=== PATIENT | female | born 1985 | race Caucasian/White ===

== ENCOUNTER 2016-10-28 22:54 | Inpatient (IN) ==
[2016-10-28] MEDS ORDERED: PEPCID PO PRN (23:11)
[2016-10-28] MEDS ORDERED: STADOL IV PRN (23:11)
[2016-10-28] MEDS ORDERED: ZOFRAN IV PRN (23:11)
[2016-10-28] MEDS ORDERED: KEFZOL 1 GM/D5W 1 GM/50 ML IVPB IV PRN (23:11)
[2016-10-28] MEDS ORDERED: PEPCID IV PRN (23:11)
[2016-10-28] MEDS ORDERED: LR 1,000 ML IV SCH (23:11)
[2016-10-28] MEDS ORDERED: TYLENOL PO PRN (23:11)
[2016-10-28] MEDS ORDERED: PITOCIN 30 UNITS/LR 30 UNITS/500 ML IV.SOLN IV SCH (23:11)
[2016-10-28] MEDS ORDERED: SODIUM CHLORIDE 0.9% INJ SCH (23:15)
[2016-10-28 23:36] LABS: MANUAL DIFF NEEDED? NO
[2016-10-28 23:40] LABS: BASO% 0.1 % (0.0-0.8); EOS# 0.11 X1000 (0.0-0.7); EOS% 1.1 % (0.0-10.0); HEMATOCRIT 34.1 % (37.0-47.0); HEMOGLOBIN 11.3 g/dL (12.0-16.0); IMM GRAN# 0.02 X1000 (0.0-0.04); IMM GRAN% 0.2 % (0.0-0.5); LYMPH# 1.73 X1000 (1.2-3.4); LYMPH% 17.4 % (20.5-51.1); MCH 28.3 PG (27-31); MCHC 33.1 g/dL (33-37); MCV 85.3 FL (81-99); MONO# 0.75 X1000 (0.11-0.59); MONO% 7.6 % (1.7-9.3); MPV 9.9 FL (7.4-10.4); NEUT% 73.6 % (42.2-75.2); PLT 265 X1000 (130-400)
[2016-10-28] MEDS ORDERED: NAROPIN 0.2% EPIDURAL SCH (23:45)
[2016-10-28] MEDS ORDERED: XYLOCAINE-MPF 1% INJ ONE (23:46)
[2016-10-28] MEDS ORDERED: MINERAL OIL MISC ONE (23:46)
[2016-10-29] MEDS ORDERED: BOOSTRIX VACCINE IM ONE (01:00)
[2016-10-29] MEDS ORDERED: HYDROXYZINE PO PRN (01:00)
[2016-10-29] MEDS ORDERED: HYDROXYZINE IM PRN (01:00)
[2016-10-29] MEDS ORDERED: CYTOTEC PO PRN (01:00)
[2016-10-29] MEDS ORDERED: PERCOCET-10 PO PRN (01:00)
[2016-10-29] MEDS ORDERED: PITOCIN 30 UNITS/LR 30 UNITS/500 ML IV.SOLN IV ONE (01:00)
[2016-10-29] MEDS ORDERED: PITOCIN IM PRN (01:00)
[2016-10-29] MEDS ORDERED: BENADRYL PO PRN (01:00)
[2016-10-29] MEDS ORDERED: PITOCIN 20 UNITS/LR 20 UNITS/1,000 ML IV.SOLN IV SCH (01:00)
[2016-10-29] MEDS ORDERED: AMBIEN PO PRN (01:00)
[2016-10-29] MEDS ORDERED: PERCOCET-5 PO PRN (01:00)
[2016-10-29] MEDS ORDERED: BENADRYL IV PRN (01:00)
[2016-10-29] MEDS ORDERED: XYLOCAINE-MPF 1% INJ PRN (01:00)
[2016-10-29] MEDS ORDERED: PERI MEDS (DERMOPLAST/NUPERCAINAL/TUCKS) MISC PRN (01:00)
[2016-10-29] MEDS ORDERED: M-M-R II VACCINE SUBQ ONE (01:00)
[2016-10-29] MEDS ORDERED: MINERAL OIL PO PRN (01:00)
[2016-10-29 04:02] LABS: URINE SOURCE VOIDED
[2016-10-29 04:12] LABS: UR AMPHETAMINES QUAL NONE DETECTED (NONE DETECT); UR BARBITUATES QUAL NONE DETECTED (NONE DETECT); UR BENZODIAZEPIN QUAL NONE DETECTED (NONE DETECT); UR CANNABINOIDS QUAL NONE DETECTED (NONE DETECT); UR COCAINE QUAL NONE DETECTED (NONE DETECT); UR MDMA QUAL NONE DETECTED (NONE DETECT); UR METHADONE QUAL NONE DETECTED (NONE DETECT); UR METHAMPHETAMINE QUAL NONE DETECTED (NONE DETECT); UR OPIATES QUAL NONE DETECTED (NONE DETECT); UR OXYCODONE QUAL NONE DETECTED (NONE DETECT); UR PCP QUAL NONE DETECTED (NONE DETECT); UR TCA QUAL NONE DETECTED (NONE DETECT)
[2016-10-29] MEDS: MOTRIN PO PRN ×2 (04:19→16:31)
[2016-10-29 04:26] LABS: BILIRUBIN URINE NEGATIVE (NEGATIVE); BLOOD URINE 4+ (NEGATIVE); CLARITY VERY CLOUDY (CLEAR); COLOR RED; LEUKOCYTES URINE 1+ (NEGATIVE); NITRITE URINE NEGATIVE (NEGATIVE); PROTEIN URINE 2+(100 mg/dL) mg/dL (NEGATIVE); UROBILINOGEN URINE 1+(1 mg/dL)
[2016-10-29] MEDS: PERICOLACE PO SCH (21:07)
[2016-10-30] MEDS: MOTRIN PO PRN ×3 (01:07→20:58)
[2016-10-30 06:16] LABS: HEMATOCRIT 32.4 % (37.0-47.0); HEMOGLOBIN 10.4 g/dL (12.0-16.0); MCHC 32.1 g/dL (33-37); MCV 87.1 FL (81-99); MPV 10.3 FL (7.4-10.4); RBC 3.72 XMIL (4.2-5.4)
[2016-10-30] MEDS: PERICOLACE PO SCH (20:58)
[2016-10-31 08:30] VITALS: BP 117/57
== END 2016-10-31 10:10 | disposition home or self-care (01) ==
LOC: P.OPLD 22:54 → P.LD 22:59 → P.WC 10-29 11:39
PROVIDERS: ADMIT Obstetrics & Gynecology; ATTEND Obstetrics & Gynecology